=== PATIENT | female | born 1990 | race Caucasian/White ===

== ENCOUNTER 2018-04-10 21:30 | Outpatient (CLI) | payer OTHER | END 2018-04-11 11:29 | disposition home or self-care (01) | LOC: OBS/DEL 21:30 | DX: O26.893 Other specified pregnancy related conditions, third trimester (principal); R10.2 Pelvic and perineal pain; O23.43 Unspecified infection of urinary tract in pregnancy, third trimester; Z34.03 Encounter for supervision of normal first pregnancy, third trimester ==

== ENCOUNTER 2018-05-05 14:07 | Inpatient (IN) | payer OTHER ==
[~2018-05-05] VITALS: Ht 162.6 cm; Wt 3.2 kg
[2018-05-13] MEDS ORDERED: PRENATAL PLUS1 EAC2 PO (08:56)
== END 2018-05-15 18:35 | disposition home or self-care (01) | DRG 766 ==
LOC: OB/GYN 05-13 08:00 → O/R 05-13 08:21 → OB/GYN 05-13 13:58
PROVIDERS: Obstetrics & Gynecology
PROC: 0UL70ZZ Occlusion of Bilateral Fallopian Tubes, Open Approach (ICD-10-PCS; 2018-05-13)
PROC: 4A033R1 Measurement of Arterial Saturation, Peripheral, Percutaneous Approach (ICD-10-PCS; 2018-05-13)
PROC: 4A1HXCZ Monitoring of Products of Conception, Cardiac Rate, External Approach (ICD-10-PCS; 2018-05-13)
PROC: 10D00Z1 Extraction of Products of Conception, Low, Open Approach (ICD-10-PCS; principal; 2018-05-13 08:00)
DX: O34.211 Maternal care for low transverse scar from previous cesarean delivery (principal); Z3A.38 38 weeks gestation of pregnancy; Z37.0 Single live birth; Z30.2 Encounter for sterilization